=== PATIENT | female | born 1950 | race Hispanic/Latino ===

== ENCOUNTER 2024-12-11 15:18 | Outpatient (CLI) | payer MEDICARE, OTHER ==
[2024-12-11 16:26] LABS: #Basophils 0.03 10x3/uL (0.0-0.2); %Basophils 0.4 % (0.0-1.0); %Eosinophils 3.7 % (0.0-10.0); %Lymphocytes 56.5 % (21.0-51.0); %Monocytes 8.4 % (0.0-10.0); %Neutrophils 30.9 % (42.0-75.0); Hematocrit 36.5 % (36.0-47.0); Mean Corpuscular HGB CONC 32.9 g/dL (32.0-36.0); Mean Corpuscular Hemoglobin 31.9 pg (27.0-31.0); Mean Corpuscular Volume 97.1 fL (78.0-98.0); Mean Platelet Volume 8.8 fL (7.4-10.4); Platelet Count 199 10x3/uL (130-400); RBC Distribution Width 13.7 % (11.5-14.5); Red Blood Cell (RBC) Count 3.76 mill/uL (4.20-5.40)
[2024-12-11 16:50] LABS: Anion Gap 11 mmol/L (10-20); BUN (Urea Nitrogen) 25 mg/dL (9.8-20.1); Calc. Creatinine Clearance 0 mL/min (70-130); Calcium 8.4 mg/dL (7.8-10.44); Carbon Dioxide 22 mmol/L (23-31); Chloride 108 mmol/L (98-107); Estimated GFR 51; Glucose 81 mg/dL (83-110); Potassium 4.9 mmol/L (3.5-5.1); Sodium 136 mmol/L (136-145)
== END 2024-12-11 15:19 | disposition home or self-care (01) ==
LOC: LABBT 15:18
PROVIDERS: ATTEND Thoracic Surgery (Cardiothoracic Vascular Surgery)
DX: Z01.818 Encounter for other preprocedural examination (principal); I65.22 Occlusion and stenosis of left carotid artery
CPT/HCPCS: 71046; 80048; 85025; 93005; 93010

== ENCOUNTER 2025-04-10 14:00 | Inpatient (IN) | payer MEDICARE, OTHER ==
[2025-04-13] MEDS ORDERED: Heparin 5,000 UNITS/ML VIAL ONE (06:27)
[2025-04-13] MEDS ORDERED: CEFAZOLIN 2 GM VIAL ONE ×2 (06:27→13:36)
[2025-04-13] MEDS ORDERED: PROPOFOL 20 ML ONE (06:40)
[2025-04-13] MEDS ORDERED: fentaNYL PF 100 MCG/2 ML SYRINGE ONE (06:44)
[2025-04-13] MEDS ORDERED: Ondansetron PF 4 MG/2 ML Vial ONE (08:13)
[2025-04-13] MEDS ORDERED: Glycopyrrolate 0.2 MG/ML 5 ML SYRINGE ONE (08:14)
[2025-04-13] MEDS ORDERED: PHENYLEPHRINE-NS 100 MCG/ML 10 ML SYRINGE ONE (08:14)
[2025-04-13] MEDS ORDERED: Ondansetron PF 4 MG/2 ML Vial IVP PRN (09:57)
[2025-04-13] MEDS ORDERED: Acetaminophen 325 MG TAB PO PRN (09:57)
[2025-04-13] MEDS ORDERED: D5 1/2 NS w/20 mEq KCL 1,000 ML ONE (12:04)
[2025-04-13] MEDS: D5 1/2 NS w/20 mEq KCL 1,000 ML IV SCH (12:08)
[2025-04-13 17:21] VITALS: BMI 32.9
[2025-04-13] MEDS: Rosuvastatin 20 MG TAB PO SCH (20:51)
[2025-04-13] MEDS ORDERED: Non-Formulary Item 1 EACH (Rosuvastatin Calcium [Rosuvastatin Calcium] 40 MG Tablet) PO SCH (21:00)
[2025-04-14 08:18] VITALS: TEMP 99.1
[2025-04-14] MEDS: Aspirin 81 mg Enteric Coated Tablet PO SCH (08:19)
[2025-04-14] MEDS: Allopurinol 100 MG TAB PO SCH (08:19)
[2025-04-14] MEDS: Ezetimibe 10 MG TAB PO SCH (08:20)
[2025-04-14] MEDS: Citalopram 20 MG TAB PO SCH (08:20)
[2025-04-14] MEDS: Lisinopril 20 MG TAB PO SCH (08:20)
[2025-04-14] MEDS ORDERED: Lisinopril 20 MG TAB PO SCH (09:00)
[2025-04-14] MEDS ORDERED: Ezetimibe 10 MG TAB PO SCH (09:00)
[2025-04-14] MEDS ORDERED: Citalopram 20 MG TAB PO SCH (09:00)
[2025-04-14] MEDS ORDERED: Aspirin 81 mg Enteric Coated Tablet PO SCH (09:00)
[2025-04-14] MEDS ORDERED: Allopurinol 100 MG TAB PO SCH (09:00)
[2025-04-14 09:40] VITALS: BP 109/56
== END 2025-04-14 11:08 | disposition home or self-care (01) | DRG 254 ==
LOC: SURG A 04-13 05:49 → PCU 04-13 15:19
PROVIDERS: ADMIT Thoracic Surgery (Cardiothoracic Vascular Surgery); ATTEND Thoracic Surgery (Cardiothoracic Vascular Surgery)
PROC: 04CK0ZZ Extirpation of Matter from Right Femoral Artery, Open Approach (ICD-10-PCS; principal; 2025-04-13)
PROC: 04UK0KZ Supplement Right Femoral Artery with Nonautologous Tissue Substitute, Open Approach (ICD-10-PCS; 2025-04-13)
PROC: 3E03329 Introduction of Other Anti-infective into Peripheral Vein, Percutaneous Approach (ICD-10-PCS; 2025-04-13)
PROC: 3E033XZ Introduction of Vasopressor into Peripheral Vein, Percutaneous Approach (ICD-10-PCS; 2025-04-13)
DX: I73.9 Peripheral vascular disease, unspecified (principal); Z79.82 Long term (current) use of aspirin; Z79.899 Other long term (current) drug therapy
CPT/HCPCS: 80048; 85025; C1725; C1768; J0169; J0665; J1100; J1644; J2405; J2704; J2720; J3480; J7050